=== PATIENT | male | born 1935 | race Caucasian/White ===

== ENCOUNTER 2017-11-12 11:15 | Outpatient (RCR) | payer MEDICARE, BC ==
[~2017-11-12 11:15] MED LIST: AMARYL 2MG T2 MG/TAB PO; AMARYL4 MG PO; ASPIRIN 81M81 MG/TA2 PO; ASPIRIN E.C. 8181 MG PO; CEFACLOR500 M2 PO; CINNAMON500 MG PO; COLACE 100100 MG/CAP PO; COUMADIN 22.5 MG/TAB PO; ELOCON0.1% TP; FLONASEALLERGY NS; GLUCOPHAGE500 MG/TAB PO; LIPITOR 10MG10 MG PO; LOPRESSOR 225 MG/TAB PO; NORCO 325 MG-51 TAB PO; VITAMIN D2000 I1 PO; VITAMIN D32000 I1 PO; ZESTRIL2.5 MG PO; ZOFRAN 4MG T4 MG/TAB PO; [UNRECOGNIZED DRUG - OTHER] PO
== END 2017-11-12 13:06 | disposition home or self-care (01) ==
LOC: MKS.ESL.PT 11:15
DX: R53.1 Weakness (principal); R26.89 Other abnormalities of gait and mobility; R42 Dizziness and giddiness; R29.6 Repeated falls; Z79.01 Long term (current) use of anticoagulants; Z79.84 Long term (current) use of oral hypoglycemic drugs; Z79.82 Long term (current) use of aspirin; Z79.899 Other long term (current) drug therapy
CPT/HCPCS: G8990-GP; G8991-GP; G8992-GP

== ENCOUNTER 2020-03-07 10:21 | Day surgery (SDC) | payer MEDICARE, BC ==
[~2020-03-07] VITALS: Ht 167.6 cm; Wt 86.4 kg
[~2020-03-07 10:21] MED LIST changes: +MASON NATURAL2000 IU PO; -VITAMIN D32000 I1 PO
[2020-03-07 11:13] LABS: BASO % 0.2 % (0.0-2.0); GRAN # 9.2 (1.4-6.5); GRAN % 82.4 % (42.2-75.2); HEMOGLOBIN 15.9 g/dl (13.5-18.0); LYMPH # 1.1 (1.2-3.4); MEAN CELL VOLUME 94 fl (80.0-100.0); MEAN CORPUSCULAR HEMOGLOBIN 32 pg (27.0-31.0); MEAN CORPUSCULAR HGB CONC 34 g/dl (33.0-37.0); MEAN PLATELET VOLUME 11.8 fl (7.4-10.4); MONO # 0.8 (0.1-0.6); MONO % 7.1 % (1.7-9.3); PLATELET COUNT 166 K/mm3 (130-400); RED BLOOD COUNT 5.01 M/mm3 (4.20-5.60); REDCELL DISTRIBUTION WIDTH-CV 13.2 % (11.5-14.5)
[2020-03-07 11:15] LABS: INR 2.7 (0.8-3.0); PROTHROMBIN TIME 30.6 SECONDS (9.7-12.8)
[2020-03-07 11:20] LABS: COLLECTION METHOD CLEAN CATCH
[2020-03-07 11:25] LABS: ALBUMIN 4.8 gm/dL (3.5-5.0); BILIRUBIN,TOTAL 0.8 mg/dL (0.0-1.0); C-REACTIVE PROTEIN 0.6 mg/dL (0.0-0.9); CALCIUM 10.3 mg/dL (8.4-10.2); CREATININE, serum 1.35 (0.66-1.25); POTASSIUM 4.3 mmol/L (3.4-5.0)
[2020-03-07 12:11] LABS: MUCOUS Present /lpf; PH 5 (5-8); SQUAMOUS EPITHELIAL None Seen /hpf; URINE APPEARANCE Clear; URINE BACTERIA None Seen /hpf; URINE BILIRUBIN Negative (NEGATIVE); URINE BLOOD 3+ (NEGATIVE); URINE COLOR Yellow; URINE GLUCOSE 3+ (NEGATIVE); URINE KETONE Trace (NEGATIVE); URINE LEUKOCYTE ESTERASE Negative (NEGATIVE); URINE NITRATE Negative (NEGATIVE); URINE PROTEIN(semi-quant) Negative (NEGATIVE); URINE RBC >50 /hpf; URINE UROBILINOGEN Negative (NEGATIVE)
--- NOTE | 2020-03-07 16:30 | NUR ---
Patient taken to room 8 per cart from ER, then PACU and is awaiting surgery. Spouse and patient informed that surgery has been delayed and that Dr. Bridges will be doing the surgery. Glasses and hearing aids removed and given to spouse. Incontinent cares done. Patient had been incontinent of large amounts of urine. IV fluids infusing. Siderails up x2 and call light in reach.
[2020-03-07 19:40] VITALS: BP 100/52; BP 101/54; BP 105/58; BP 107/64; BP 11/50; BP 114/52; BP 117/54; BP 125/86; PULSE 70; PULSE 74; PULSE 78; TEMP 81; TEMP 98
[2020-03-07] MEDS ORDERED: B-121000 MCG PO (20:15)
[2020-03-07] MEDS ORDERED: JARDIANCE25 (20:17)
[2020-03-07] MEDS ORDERED: HERBAL SUPPLEMENT PO (20:22)
--- NOTE | 2020-03-07 22:00 | NUR ---
Pt currently lying in bed. Pt did have some confusion when he arrived to the floor. Pt bed was wet and pt got a complete bed change. Pt was able to void in the urinal. Pt urine was bright red but clear. Pt was able to show me his medications on his phone. ALEXANDRA Baltazar gave me report and stated that hosptialist neeed to be consulted due to pt blood glucose level being 302. Pt was given Regular insulin in the PACU unit. Pt blood glucose level is currentlyl at 230. Nitza the hosptialist was also notified at this time. She did not order anything different for pt diabeties. She wanted fluids to continue throughout the night and she wanted his blood glucose levels monitored ACHS. Pt has no compliants of pain at this time. He was able to answere some questions about his health but it was tough to understand due to him having a hard time hearing. pt lopez has his call light within reach.
[2020-03-08 02:56] VITALS: BP 105/68; PULSE 71; TEMP 98
[2020-03-08 07:40] VITALS: BP 107/50; PULSE 79; TEMP 98.5
--- NOTE | 2020-03-08 07:40 | NUR ---
Pt slept well during the night. Pt was a little confused at times. Due to weakness pt was a fall risk so pt bed alarm and all fall precautions were used at this time. Pt was able to use the urinal but pt did have incontinence during the night. Urine was strained and pt had no complaints of pain. Margie payne hosptialist did come by and see the pt. She wanted him monitored as far as his blood glucose levels. This morning he was at 154 and she was notifed at this time. Pt has his call light within reach. Report was given to ALEXANDRA Gilliland.
--- NOTE | 2020-03-08 08:00 | NUR ---
PATIENT IS ORIENTED X3, SHIPPING LEAD PERSON REPORTED OCCATIONAL CONFUSION. NO CONFUSION NOTED THIS AM. PATIENT IS PLATINUM. HELD AM LISINOPRIL DUE TO LOW B/P, ALL OTHER VSS. DENIES PAIN OR NAUSEA. PATIENT SITTING UP IN BED WITH BREAKFAST TRAY. AM MEDS GIVEN. PATIENT TOLERATING ADA DIET. RIGHT AC IV TO INT. PATIENT VOIDING, INCONTIENT. HEAD TO TOE ASSESSMENT COMPLETE. NO OTHER NEEDS. CALL LIGHT IN REACH.
--- NOTE | 2020-03-08 11:34 | NUR ---
Several visit attempts; Patient sleeping, Tap Dancer left card to inform patient of the availability of spiritual care and ot offer God's blessings.
[2020-03-08 11:43] VITALS: BP 112/64; PULSE 68; TEMP 98
--- NOTE | 2020-03-08 14:05 | NUR ---
PATIENT DISCHARGING HOME VIA WC TO PERSONAL VEHICLE WITH . GAVE DISCHARGE INSTRUCTIONS AND DISCUSSED FOLLOW UP APT. ANSWERED QUESTIONS/CONCERNS. STUDENT NURSE DC'D IV SITE AND COVERED WITH [employer]. PATIENT DISCHARGED.
== END 2020-03-08 14:05 | disposition home or self-care (01) ==
LOC: COL.ER 10:21 → SDCO 17:36 → JCC 19:00 → SDCO 03-08 14:05
PROVIDERS: Emergency Medicine
DX: N13.2 Hydronephrosis with renal and ureteral calculous obstruction (principal); I10 Essential (primary) hypertension; E11.9 Type 2 diabetes mellitus without complications; Z86.711 Personal history of pulmonary embolism; Z85.46 Personal history of malignant neoplasm of prostate; Z79.82 Long term (current) use of aspirin; Z79.899 Other long term (current) drug therapy; Z79.84 Long term (current) use of oral hypoglycemic drugs; Z79.01 Long term (current) use of anticoagulants; Z79.2 Long term (current) use of antibiotics; Z79.891 Long term (current) use of opiate analgesic
CPT/HCPCS: OP; C1769; J0690; J1815; J2405; J2704; J3010; J7030; J7120; Q9967

== ENCOUNTER 2022-01-09 12:39 | Emergency (ER) | payer MEDICARE, BC ==
[~2022-01-09] VITALS: Ht 162.6 cm; Wt 77.7 kg
[~2022-01-09 12:39] MED LIST changes: +B-121000 MCG PO; +HERBAL SUPPLEMENT PO; +JARDIANCE25
[2022-01-09 13:12] VITALS: BP 115/72; PULSE 89; TEMP 96.9
[2022-01-09] MEDS ORDERED: OMNICEF 300MG300 MG PO (13:29)
[2022-01-09] MEDS ORDERED: GLUCOTROL10 MG PO (13:31)
[2022-01-09] MEDS ORDERED: OZEMPIC1 MG/0.71 SQ (13:32)
[2022-01-09 15:13] LABS: BASO % 0.4 % (0.0-2.0); EOS # 0.1 K/mm3 (0.0-0.7); GRAN % 70.8 % (42.2-75.2); HEMATOCRIT 40.1 % (42.0-52.0); HEMOGLOBIN 13.7 g/dl (13.5-18.0); LYMPH # 1.7 K/mm3 (1.2-3.4); LYMPH % 19.9 % (20.0-51.0); MEAN CELL VOLUME 93 fl (80.0-100.0); MEAN CORPUSCULAR HEMOGLOBIN 32 pg (27-31); MEAN CORPUSCULAR HGB CONC 34 g/dl (33.0-37.0); MEAN PLATELET VOLUME 10.2 fl (7.4-10.4); MONO # 0.6 K/mm3 (0.1-0.6); MONO % 7.1 % (1.7-9.3); PLATELET COUNT 239 K/mm3 (130-400); REDCELL DISTRIBUTION WIDTH-CV 13.2 % (11.5-14.5)
[2022-01-09 15:32] LABS: ALBUMIN 3.3 gm/dL (3.4-4.8); BILIRUBIN,TOTAL 0.9 mg/dL (0.2-1.2); POTASSIUM 4.2 mmol/L (3.5-4.5); TOTAL PROTEIN 6.7 gm/dL (6.2-8.1)
== END 2022-01-09 16:50 | disposition home or self-care (01) ==
LOC: COL.ER 12:39
PROVIDERS: Nurse Practitioner Family
DX: S63.124A Dislocation of interphalangeal joint of right thumb, initial encounter (principal); W18.39XA Other fall on same level, initial encounter; Z28.310 Unvaccinated for COVID-19; W25.XXXA Contact with sharp glass, initial encounter